=== PATIENT | male | born 1955 | race Caucasian/White ===

== ENCOUNTER 2017-10-03 05:47 | Emergency (ER) | payer OTHER, MEDICAID ==
[~2017-10-03] VITALS: Ht 182.9 cm; Wt 122.5 kg
[~2017-10-03 05:47] MED LIST: BENA40TA2 PO
[2017-10-03 05:57] VITALS: BP_SYST 139
[2017-10-03] MEDS ORDERED: KETOROLAC TROMETHAMINE 30 MG VIAL IVP ONE (06:15)
[2017-10-03] MEDS ORDERED: ONDANSETRON HCL 4 MG/2 ML VIAL IVP ONE (06:15)
[2017-10-03] MEDS ORDERED: NACL 0.9% 1,000 ML IV ONE (06:15)
[2017-10-03 06:54] LABS: BILIRUBIN,URINE NEGATIVE (NEGATIVE); BLOOD, URINE NEGATIVE (NEGATIVE); CLARITY/URINE CLEAR (CLEAR); COLOR,URINE YELLOW (YELLOW); GLUCOSE,URINE NEGATIVE (NEGATIVE); KETONES,URINE NEGATIVE (NEGATIVE); LEUKOCYTE ESTERASE ,URINE NEGATIVE (NEGATIVE); NITRITE, URINE NEGATIVE (NEGATIVE); PROTEIN URINE NEGATIVE (NEGATIVE)
[2017-10-03 06:57] LABS: BASOPHILS % (AUTO) 0.2 % (0.0-2.0); EOSINOPHILS % (AUTO) 0.3 % (0.0-4.0); HEMOGLOBIN 12.5 g/dL (14.0-18.0); LYMPHOCYTES # (AUTO) 0.9 K/uL (1.0-5.5); LYMPHOCYTES % (AUTO) 9.3 % (20.5-51.5); MEAN CORPUSCULAR HEMOGLOBIN 24 pg (27-31); MEAN CORPUSCULAR HGB CONC 31 % (32-36); MEAN CORPUSCULAR VOLUME 77 fL (79.0-98.0); MONOCYTES # (AUTO) 0.5 K/uL (0.0-1.0); MONOCYTES % (AUTO) 5.6 % (1.7-9.3); NEUTROPHILS # (AUTO) 7.9 K/uL (1.8-7.7); NEUTROPHILS % (AUTO) 84.6 % (40.0-70.0); PLATELET COUNT (AUTO) 271 K/uL (130-430); RED CELL DISTRIBUTION WIDTH 17.2 % (9.0-15.0); WHITE BLOOD COUNT (AUTO) 9.3 K/uL (4.8-10.8)
[2017-10-03] MEDS ORDERED: MORPHINE 4 MG/ML INJ. SYRINGE IVP ONE (07:00)
[2017-10-03 07:15] LABS: ALBUMIN 3.6 g/dL (3.4-4.8); CREATININE 1.03 mg/dL (0.55-1.30); POTASSIUM 4.2 mmol/L (3.5-5.1); TOTAL BILIRUBIN 0.9 mg/dL (0.0-1.0)
[2017-10-03 08:10] VITALS: BP_SYST 128
== END 2017-10-03 08:10 | disposition home or self-care (01) ==
LOC: SED 05:47
DX: K59.03 Drug induced constipation (principal); T39.1X5A Adverse effect of 4-Aminophenol derivatives, initial encounter; K21.9 Gastro-esophageal reflux disease without esophagitis; I10 Essential (primary) hypertension; Z96.651 Presence of right artificial knee joint; Z96.643 Presence of artificial hip joint, bilateral; Y92.89 Other specified places as the place of occurrence of the external cause
CPT/HCPCS: 36415; 74018; 74176; 80053; 81003; 82150; 83690; 85025; 96361; 96374; 96375; 99285; J1885; J2270; J2405; J7030

== ENCOUNTER 2018-02-21 08:09 | Outpatient (CLI) | payer OTHER, MEDICAID | END 2018-02-21 18:53 | disposition home or self-care (01) | LOC: SUS 08:09 | PROVIDERS: ATTEND Family Medicine | DX: K80.20 Calculus of gallbladder without cholecystitis without obstruction (principal); N20.0 Calculus of kidney | CPT/HCPCS: 76700-TC; 76770 ==

== ENCOUNTER 2018-10-06 11:17 | Emergency (ER) | payer OTHER, MEDICAID ==
[~2018-10-06] VITALS: Ht 182.9 cm; Wt 120.2 kg
[~2018-10-06 11:17] MED LIST changes: -BENA40TA2 PO; +BENA40TA8 PO
[2018-10-06 11:31] VITALS: BP_SYST 169
--- NOTE | 2018-10-06 11:52 | NUR ---
Placed in room 04 . Placed on gambling monitor, blood pressure machine and pulse oximeter. To gown for exam. Side rails up.
--- NOTE | 2018-10-06 12:09 | NUR ---
Pt states that he had a weird pain in his head, left temporal side when he touched it. "Tension and puffy" on left side. Denies n/v, denies dizziness. Soreness left side around left ear down to neck. Took greg @4519 without relief.
--- NOTE | 2018-10-06 12:15 | NUR ---
ER at bedside examining patient.
[2018-10-06 12:23] LABS: BASOPHILS % (AUTO) 0.5 % (0.0-2.0); EOSINOPHILS % (AUTO) 0.2 % (0.0-4.0); HEMATOCRIT 38.3 % (36-54); HEMOGLOBIN 12.5 g/dL (14.0-18.0); LYMPHOCYTES # (AUTO) 0.8 K/uL (1.0-5.5); LYMPHOCYTES % (AUTO) 11.2 % (20.5-51.5); MEAN CORPUSCULAR HEMOGLOBIN 25 pg (27-31); MEAN CORPUSCULAR HGB CONC 33 % (32-36); MEAN CORPUSCULAR VOLUME 78 fL (79.0-98.0); MONOCYTES # (AUTO) 0.6 K/uL (0.0-1.0); MONOCYTES % (AUTO) 8.9 % (1.7-9.3); NEUTROPHILS # (AUTO) 5.8 K/uL (1.8-7.7); NEUTROPHILS % (AUTO) 79.2 % (40.0-70.0); PLATELET COUNT (AUTO) 234 K/uL (130-430); RED BLOOD CELL COUNT(AUTO) 4.92 MIL/uL (4.2-6.2); RED CELL DISTRIBUTION WIDTH 16.6 % (9.0-15.0); WHITE BLOOD COUNT (AUTO) 7.3 K/uL (4.8-10.8)
[2018-10-06 12:33] LABS: ANION GAP 10 (5-15); CALCIUM 8.8 mg/dL (8.4-11.0); CHLORIDE 104 mmol/L (98-107); CREATININE 1.21 mg/dL (0.55-1.30); GLUCOSE 124 mg/dL (70-99); SODIUM SERUM 139 mmol/L (136-145); UREA NITROGEN, BLOOD 16 mg/dL (8-21)
[2018-10-06 12:34] LABS: GFR AFRICAN AMERICAN 79 mL/min (>90)
[2018-10-06 12:36] LABS: PROTHROMBIN TIME 9.8 SECS (9.5-12.5)
[2018-10-06 12:41] LABS: ALANINE AMINOTRANSFERASE 27 U/L (12-78); ALBUMIN 3.5 g/dL (3.4-4.8); ASPARTATE AMINOTRANSFERASE 20 U/L (10-37); TOTAL BILIRUBIN 0.4 mg/dL (0.0-1.0)
[2018-10-06 12:50] VITALS: BP_SYST 162
--- NOTE | 2018-10-06 12:50 | NUR ---
Patient given written and verbal discharge instructions and verbalizes understanding. ER MD discussed with patient the results and treatment provided. Patient in stable condition. ID arm band removed. Rx of betamethasone given. Patient educated on pain management and to follow up with PMD. Pain Scale 2. Opportunity for questions provided and answered. Medication side effect fact sheet provided.
== END 2018-10-06 12:50 | disposition home or self-care (01) ==
LOC: SED 11:17
DX: L30.9 Dermatitis, unspecified (principal); K21.9 Gastro-esophageal reflux disease without esophagitis; I10 Essential (primary) hypertension; Z79.899 Other long term (current) drug therapy
CPT/HCPCS: 36415; 80053; 84484; 85025; 85610-TC; 93005; 99284

== ENCOUNTER 2021-05-08 14:19 | Emergency (ER) | payer OTHER, MEDICAID ==
[~2021-05-08] VITALS: Ht 182.9 cm; Wt 124.7 kg
[2021-05-08 14:29] VITALS: BP_SYST 163
[2021-05-08] MEDS ORDERED: CLIN300C12 PO ×2 (15:34→15:48)
[2021-05-08] MEDS ORDERED: CLINDAMYCIN HCL 150 MG CAPSULE PO ONE (15:45)
[2021-05-08 16:01] VITALS: BP_SYST 148
== END 2021-05-08 16:01 | disposition home or self-care (01) ==
LOC: SED 14:19
DX: M71.122 Other infective bursitis, left elbow (principal); I10 Essential (primary) hypertension; K21.9 Gastro-esophageal reflux disease without esophagitis; Z79.899 Other long term (current) drug therapy
CPT/HCPCS: 99283

== ENCOUNTER 2021-08-11 06:13 | Inpatient (IN) | payer OTHER, MEDICAID, SELFPAY ==
[2021-08-07 13:56] LABS: BASOPHILS % (AUTO) 0.5 % (0.0-2.0); EOSINOPHILS # (AUTO) 0.2 K/uL (0.0-0.4); EOSINOPHILS % (AUTO) 1.8 % (0.0-4.0); HEMATOCRIT 45.5 % (36-54); HEMOGLOBIN 15.1 g/dL (14.0-18.0); LYMPHOCYTES # (AUTO) 1.4 K/uL (1.0-5.5); LYMPHOCYTES % (AUTO) 15.8 % (20.5-51.5); MEAN CORPUSCULAR HEMOGLOBIN 28 pg (27-31); MEAN CORPUSCULAR HGB CONC 33 % (32-36); MEAN CORPUSCULAR VOLUME 84 fL (79.0-98.0); MONOCYTES # (AUTO) 0.6 K/uL (0.0-1.0); MONOCYTES % (AUTO) 6.5 % (1.7-9.3); NEUTROPHILS # (AUTO) 6.5 K/uL (1.8-7.7); NEUTROPHILS % (AUTO) 75.4 % (40.0-70.0); PLATELET COUNT (AUTO) 245 K/uL (130-430); RED BLOOD CELL COUNT(AUTO) 5.44 MIL/uL (4.2-6.2); RED CELL DISTRIBUTION WIDTH 15.1 % (9.0-15.0); WHITE BLOOD COUNT (AUTO) 8.6 K/uL (4.8-10.8)
[2021-08-07 14:07] LABS: CALCIUM 8.7 mg/dL (8.4-11.0); CREATININE 1.29 mg/dL (0.55-1.30); POTASSIUM 4.2 mmol/L (3.5-5.1)
[2021-08-07 14:14] LABS: BILIRUBIN,URINE NEGATIVE (NEGATIVE); BLOOD, URINE NEGATIVE (NEGATIVE); CLARITY/URINE CLEAR (CLEAR); COLOR,URINE YELLOW (YELLOW); GLUCOSE,URINE NEGATIVE (NEGATIVE); KETONES,URINE NEGATIVE (NEGATIVE); LEUKOCYTE ESTERASE ,URINE NEGATIVE (NEGATIVE); NITRITE, URINE NEGATIVE (NEGATIVE); PH,URINE 5.5 (5.0-8.0); PROTEIN URINE NEGATIVE (NEGATIVE); UROBILINOGEN,URINE 0.2 (0.2-1.0)
[2021-08-07 14:32] LABS: INR 0.9 (0.80-1.20); PROTHROMBIN TIME 9.8 SECS (9.5-12.5)
[~2021-08-11] VITALS: Ht 185.4 cm; Wt 124.7 kg
[2021-08-11] VITALS (9 sets, daily range): BP systolic 114–153
[~2021-08-11 06:13] MED LIST changes: -BENA40TA8 PO; +BENA40TA89 PO; +CLIN-142 PO
[2021-08-11] MEDS ORDERED: BUPIVACAINE LIPOSOME/PF 266 MG/20 ML VIAL INFIL ONE (06:51)
[2021-08-11] MEDS ORDERED: ALBU8.5H8 INH (07:28)
[2021-08-11] MEDS ORDERED: ASPI-1111 PO (07:28)
[2021-08-11] MEDS ORDERED: ALLO300T2 PO (07:28)
[2021-08-11] MEDS ORDERED: DICL75TA5 PO (07:28)
[2021-08-11] MEDS ORDERED: NOR10 PO (07:28)
[2021-08-11] MEDS ORDERED: MAGN400T10 PO (07:28)
[2021-08-11] MEDS ORDERED: CALC-939 PO (07:28)
[2021-08-11] MEDS ORDERED: MULT-1089 PO (07:28)
[2021-08-11] MEDS ORDERED: OMEP20CA15 PO (07:28)
[2021-08-11] MEDS ORDERED: DEXAMETHASONE SOD PHOSPHATE 4 MG/ML VIAL IVP ONE (08:00)
[2021-08-11] MEDS ORDERED: BACITRACIN 1 GM OINT TP ONE (08:00)
[2021-08-11] MEDS ORDERED: ONDANSETRON HCL 4 MG/2 ML VIAL IVP ONE (08:00)
[2021-08-11] MEDS ORDERED: KETOROLAC TROMETHAMINE 30 MG VIAL IVP ONE (08:00)
[2021-08-11] MEDS ORDERED: DESFLURANE 15 MIN GAS INH ONE (08:00)
[2021-08-11] MEDS ORDERED: SUGAMMADEX SODIUM 200 MG/2 ML VIAL IV ONE (08:00)
[2021-08-11] MEDS ORDERED: NS 50 ML BAG IV ONE (08:00)
[2021-08-11] MEDS ORDERED: PROPOFOL 200MG/ 20ML VIAL (DIPRIVAN) IV ONE (08:00)
[2021-08-11] MEDS ORDERED: BUPIVACAINE /EPINEPHRINE/PF 0.25% 30 ML VIAL INJ ONE (08:00)
[2021-08-11] MEDS ORDERED: MIDAZOLAM HCL 5 MG/5 ML VIAL IVP ONE (08:00)
[2021-08-11] MEDS ORDERED: MORPHINE SULFATE 10MG/10ML PF AMP EP ONE (08:00)
[2021-08-11] MEDS ORDERED: BUPIVACAINE /PF 0.25% 30 ML VIAL INJ ONE (08:00)
[2021-08-11] MEDS ORDERED: NS IRRIG SOLN 1000 ML IR ONE (08:00)
[2021-08-11] MEDS ORDERED: LR 1,000 ML IV.SOLN IV ONE (08:00)
[2021-08-11] MEDS ORDERED: TRANEXAMIC ACID 1,000 MG/10 ML VIAL IV ONE (08:00)
[2021-08-11] MEDS ORDERED: fentaNYL CITRATE 250 MCG/5 ML AMP IV ONE (08:00)
[2021-08-11] MEDS ORDERED: ROCURONIUM BROMIDE 10 MG/ML (ZEMURON) IV ONE (08:00)
[2021-08-11] MEDS ORDERED: BISACODYL 10 MG/SUPPOSITORY RC PRN (08:30)
[2021-08-11] MEDS ORDERED: D5/0.45 NS 1,000 ML IV ONE (08:30)
[2021-08-11] MEDS ORDERED: HYDROcodone/ACETAMIN 7.5-325 MG TAB PO PRN (08:30)
[2021-08-11] MEDS ORDERED: MORPHINE SULFATE 10 MG/ML VIAL IM PRN (08:30)
[2021-08-11] MEDS ORDERED: ACETAMINOPHEN I.V. 1000 MG 100 ML IV ONE (08:59)
[2021-08-11] MEDS ORDERED: hydrALAZINE HCL 20 MG/ML VIAL IVP PRN (09:15)
[2021-08-11] MEDS ORDERED: MIDAZOLAM HCL 2 MG/2 ML VIAL (VERSED) IVP PRN (09:15)
[2021-08-11] MEDS ORDERED: METOCLOPRAMIDE HCL 10 MG/2 ML VIAL IVP PRN (09:15)
[2021-08-11] MEDS ORDERED: MEPERIDINE HCL/PF 25 MG/ML DISP.SYRIN IVP PRN (09:15)
[2021-08-11] MEDS ORDERED: HYDROmorphone 1 MG/ML INJ. CARTRIDGE IVP PRN ×2 (09:15)
[2021-08-11] MEDS ORDERED: LABETALOL 100 MG/ 20ML VIAL IVP PRN (09:15)
[2021-08-11] MEDS: HYDROmorphone 1 MG/ML INJ. CARTRIDGE ONE ×4 (11:25→11:40)
--- NOTE | 2021-08-11 14:10 | NUR ---
ADMITTED TO ROOM 101A: PATIENT ARRIVED TO ROOM 101A, AAOX4, ABLE TO MAKE NEEDS KNOWN. NO ADDITIONAL DISTRESS NOTED. RH 20 G IVF INFUSING LR AT 120CC/HR.. R KNEE POLAR ICE IN PLACED; DRESSING C/D/I WELL. EXPLAINED POC AND PATIENT VERBALIZED UNDERSTANDING. NOTED PATIENT HAS MILD ANXIETY AND NEEDY. ALTHOUGH PATIENT IS VERY COOPERATIVE AND PLEASANT TO TALK TO. STABLE CONDITION AT THIS TIME. WILL CONT TO MONITOR.
[2021-08-11] MEDS: LR 1,000 ML IV SCH ×2 (14:58→22:23)
[2021-08-11] MEDS ORDERED: OMEPRAZOLE Non-Formulary 20 MG CAPSULE.DR PO SCH (15:15)
[2021-08-11] MEDS ORDERED: PANTOPRAZOLE SODIUM 40 MG TAB PO ONE (15:30)
--- NOTE | 2021-08-11 15:30 | NUR ---
PT AND CMP PHYSICAL THERAPY (PT) AT THE BEDSIDE AND WALKED THE PATIENT. WELL APPLYING CMP MACHINE. PER PHYSICAL THERAPY, PATIENT WAS ABLE TO WALK IN ROOM USING A WALKER WHICH HE TOLERATED WELL. CPM IS APPLIED TO THE THE LEG AFTER WALKING. CMP WILL BE STOPPED BETWEEN 7PM-8PM CHEN. POLAR ICE MAY APPLY THEN. POLAR ICE OFF AT THIS TIME. PATIENT TOLERATED CPM MACHINE. NO ADDITIONAL DISTRESS NOTED. WILL CONT TO MONITOR.
--- NOTE | 2021-08-11 16:25 | NUR ---
PT EVAL COMPLETED, PLAN OF CARE ESTABLISHED, INITIAL CPM SET-UP COMPLETED FOR 0-60 DEGREES. SEE EVAL FOR DETAILS.
[2021-08-11] MEDS: CEFAZOLIN 1 GM IVPB PREMIX 50 ML IV SCH ×2 (17:09→22:22)
--- NOTE | 2021-08-11 19:00 | NUR ---
NURSING NOTES [id number]: 1600: PATIENT IS RESTING IN BED, ASLEEP. NO ADDITIONAL DISTRESS NOTED. COTN WITH CMP. TOLERATED WELL AT THIS TIME. WILL CONT TO MONITOR. 1800: PATIENT IS RESTING IN BED EATING HIS DINNER. NO CHANGE FROM PREVIOUS ASSESSMENT. 1845: NO CHANGE FROM PREVIOUS ASSESSMENT. PATIENT STILL EATING HIS DINNER AND WATCHING TV. STABLE CONDITION AT THIS TIME. WILL CONT TO MONITOR.
--- NOTE | 2021-08-11 19:30 | NUR ---
OPENING NOTE RECEIVED REPORT FROM DAY RN. PT AOX4 ON BEDREST P/O RIGHT TOTAL KNEE SURGERY. INCISION SITE COVERED WITH SURGICAL DRESSING. PT VS WNL. CALL LIGHT WITH REACH. RIGHT AND IV INTACT AND RUNNING IVF. NO SIGNS OF INFILTRATION NOTED.FAIR INTACT AND DRAINING YELLOW FLUID BY GRAVITY. WILL CONTINUE TO MONITOR.
[2021-08-12 00:11] VITALS: BP_SYST 148
[2021-08-12] MEDS: ACETAMINOPHEN 325 MG TABLET PO PRN ×5 (00:44→20:11)
[2021-08-12] MEDS: LR 1,000 ML IV SCH (01:25)
--- NOTE | 2021-08-12 02:15 | NUR ---
ROUNDS PT LAYING IN BED WITH RESPIRATIONS EVEN AND UNLABORED ON RA. NO SIGNS OF DISTRESS NOTED. EYES CLOSED. RIGHT LEG ELEVATED WITH PILLOW SUPPORT. IVF RUNNING. WILL CONTINUE TO MONITOR.
--- NOTE | 2021-08-12 05:15 | NUR ---
HYGIENE CARE COMPLETED. PT TOLERATED WELL. NO PAIN AT THIS TIME. WILL CONTINUE TO MONITOR.
--- NOTE | 2021-08-12 05:58 | NUR ---
Nutrition Update Cruz Scale 16 noted. Pt admitted for Unilateral Primary Osteoarthritis, R knee Diet: Regular BMI: 36.3 kg/m2 RD to follow per nutrition care standards.
--- NOTE | 2021-08-12 06:50 | NUR ---
CLOSING NOTE PT LAYING IN BED WITH RESPIRATIONS EVEN AND UNLABORED ON RA. NO SIGNS OF DISTRESS NOTED. PT CURRENTLY DENIES PAIN. PT REPOSITIONED FOR COMFORT. PT STATES THAT HE WAS ABLE TO PASS GAS. RIGHT HAND IV INTACT AND RUNNING IVF. NO SIGNS OF INFILTRATION NOTED. SAFETY PRECAUTIONS IN PLACE. WILL ENDORSE TO DAY RN.
[2021-08-12] MEDS: PANTOPRAZOLE SODIUM 40 MG TAB PO SCH (08:06)
[2021-08-12] MEDS: RIVAROXABAN 10 MG TABLET PO SCH ×2 (08:11→08:22)
[2021-08-12 08:16] VITALS: BP_SYST 145
--- NOTE | 2021-08-12 10:01 | NUR ---
Discharge Planning: [facility] faxed pt referral to [facility] [phone], [facility] to follow up. Addendum: 08/12/21 at 1400 by Norma MARTINEZ [facility] followed pt referral to [facility] [phone] will deliver wheel chair and CPM to home, [facility] gave sister Leticia [phone] as point of contact per patient. [facility] faxed home health for PT referral to [facility]-[phone] [facility] to follow up Addendum: 08/12/21 at 1505 by Norma MARTINEZ [facility] [phone] will deliver wheel chair and CPM to home. [facility]-[phone] accepted pt. Addendum: 08/12/21 at 1506 by Norma Tsai DP Disposition 06
--- NOTE | 2021-08-12 11:35 | NUR ---
DR. VIRK IN THE UNIT. PER MD ARORA TO REMOVE FAIR CATHETER AND PT WILL BE DISCHARGE TOMORROW 08/13/21.
--- NOTE | 2021-08-12 13:25 | NUR ---
DISCONTINUED FAIR CATHETER. PT TOLERATED PROCEDURE WELL. URINE OUTPUT 1200 ML OF YELLOW CLEAR URINE NOTED. Addendum: 08/12/21 at 1606 by Ifeoma early childhood educator aide POST FAIR REMOVAL. PT ABLE TO VOID WITHOUT DIFFICULTY 350 ML OF YELLOW URINE.
[2021-08-12 16:00] VITALS: BP_SYST 154
--- NOTE | 2021-08-12 19:48 | NUR ---
OPENING NOTE RECEIVED REPORT FROM DAY RN. PT AOX4 ON BEDREST P/O RIGHT TOTAL KNEE SURGERY. INCISION SITE COVERED WITH SURGICAL DRESSING. PT VS WNL. CALL LIGHT WITH REACH. WILL CONTINUE TO MONITOR.
[2021-08-12 20:08] VITALS: BP_SYST 157
[2021-08-12] MEDS ORDERED: ALBUTEROL MDI INHALATION 8 GM INH INH PRN (21:45)
--- NOTE | 2021-08-12 22:14 | NUR ---
DR. LANGLEY AT BEDSIDE UPDATED PT ON PLAN OF CARE. ORDERED PRN MEDICATION. VERBAL INSTRUCTIONS VERIFIED.
[2021-08-12] MEDS ORDERED: traMADol HCL HCL 50 MG TABLET (ULTRAM) PO PRN (22:30)
[2021-08-13 00:18] VITALS: BP_SYST 144
[2021-08-13] MEDS: ACETAMINOPHEN 325 MG TABLET PO PRN (04:13)
--- NOTE | 2021-08-13 05:25 | NUR ---
ROUNDING ROUNDING ON PATIENT. PATIENT IN BED RESTING WITH KNEE SUPPORTED ON PILLOW RECOMMENDED TO PATIENT BY PT. ADJUSTED PILLOWS FOR COMFORT AND SUPPORT. ADDRESSED PATIENTS NEEDS FOR FRESH WATER. NO SIGNS OF DISTRESS NOTED. WILL CONTINUE TO MONITOR.
--- NOTE | 2021-08-13 06:34 | NUR ---
CLOSING NOTE PT LAYING IN BED WITH RESPIRATIONS EVEN AND UNLABORED ON RA. NO SIGNS OF DISTRESS NOTED. PILLOWS ADJUSTED FOR COMFORT. POLAR ICE IN PLACE. ALL NEEDS MET. SAFETY PRECAUTIONS IN PLACE. WILL ENDORSE TO DAY RN.
--- NOTE | 2021-08-13 07:18 | NUR ---
PHYSICAL THERAPY CO-SIGN The Physical Therapy Progress Notes documented by Supervisor Instrument Mechanics have been reviewed. Reviewed/Co-Signed by: Krystian Shahid Documentation Done by: LORENE ACUNA PTA Addendum: 08/13/21 at 0719 by Krystian Shahid PT Amended: Links added.
[2021-08-13 08:00] VITALS: BP_SYST 146
[2021-08-13] MEDS ORDERED: ALBUTEROL SULFATE 0.083% 2.5 MG/3 ML VIAL.NEB INH PRN (08:00)
[2021-08-13] MEDS: PANTOPRAZOLE SODIUM 40 MG TAB PO SCH (08:32)
[2021-08-13] MEDS: RIVAROXABAN 10 MG TABLET PO SCH (08:39)
[2021-08-13] MEDS ORDERED: MULTIVITAMINS TAB 1 TABLET PO SCH (09:00)
[2021-08-13] MEDS ORDERED: CLINDAMYCIN HCL 150 MG CAPSULE PO SCH (09:00)
[2021-08-13] MEDS ORDERED: amLODIPine BESYLATE 10 MG TABLET PO SCH (09:00)
[2021-08-13] MEDS ORDERED: MAGNESIUM OXIDE 400 MG TABLET PO SCH (09:00)
[2021-08-13] MEDS ORDERED: ALLOPURINOL 300 MG TABLET (ZYLOPRIM) PO SCH (09:00)
[2021-08-13] MEDS ORDERED: CALCIUM CARBONATE/VITAMIN D3 1 TAB TABLET PO SCH (09:00)
[2021-08-13] MEDS ORDERED: lisinopriL 20 MG TABLET PO SCH (09:00)
[2021-08-13] MEDS ORDERED: BENAZEPRIL HCL 20 MG TABLET (LOTENSIN) PO SCH (09:00)
[2021-08-13 09:31] VITALS: BP_SYST 146
[2021-08-13] MEDS ORDERED: RIVA10TA PO (10:35)
--- NOTE | 2021-08-13 11:21 | NUR ---
discharge papers handed, instructions given. discharged alert and oriented via wheelchair accompanied by sister.
--- NOTE | 2021-08-14 07:21 | NUR ---
PHYSICAL THERAPY CO-SIGN The Physical Therapy Progress Notes documented by Woodworking Machine Operator have been reviewed. Reviewed/Co-Signed by: Krystian Shahid Documentation Done by: LORENE ACUNA PTA Addendum: 08/14/21 at 0722 by Krystian Shahid PT Amended: Links added.
== END 2021-08-13 11:20 | disposition home health service (06) | DRG 470 ==
LOC: SMU 06:13
PROVIDERS: ADMIT Orthopaedic Surgery; ATTEND Orthopaedic Surgery
PROC: 0SRC0J9 Replacement of Right Knee Joint with Synthetic Substitute, Cemented, Open Approach (ICD-10-PCS; principal; 2021-08-11 08:07)
DX: M17.11 Unilateral primary osteoarthritis, right knee (principal); G89.29 Other chronic pain; J45.909 Unspecified asthma, uncomplicated; M10.9 Gout, unspecified; I10 Essential (primary) hypertension; Z96.651 Presence of right artificial knee joint; Z96.643 Presence of artificial hip joint, bilateral; Z20.822 Contact with and (suspected) exposure to COVID-19
CPT/HCPCS: 36415; 71046-TC; 80048; 81003; 85025; 85610-TC; 85730-TC; 87081; 88305; 88311; 93005; 97039; 97110-GP; 97530-GP; C1713; C1776; C9290; J0131; J0690; J1100; J1170; J1885; J2250; J2274; J2405; J2704; J3010; J3490; J7120; U0003